=== PATIENT | female | born 1945 | race Caucasian/White ===

== ENCOUNTER 2023-10-22 08:19 | Emergency (ER) | payer OTHER ==
--- OUTSIDE RECORDS SUMMARY | 2023-10-22 08:22 | XMS REPORT | Continuity of Care Document ---
:1945 Author Organization [facility] t Address [address] [place] [address] [place] [id number] Care Team Providers Name Role Phone Asked, No Pcp Primary Care Physician Unavailable GC_SWHATBIC_Black_D Attending Clinician Unavailable GC_SWHAOMC_Black_D Attending Clinician Unavailable BRIDGETT WEINSTEIN Attending Clinician Unavailable Marcin Oleary Attending Clinician GC_SWHATBIC_Black_D Admitting Clinician Unavailable GC_SWHAOMC_Black_D Admitting Clinician Unavailable Payers Payer Name Policy Type Policy Number Effective Date Expiration Date [facility] [id number] (MEDICARE REPLACEMENT/ADVANTAGE - PPO) Problems Condition Condition Condition Status Onset Resolution Last Treating Co mments Source Name Details Category Date Date Treatment Clinician Date Visual Visual Problem Active 2019-07-29 Jose harley disturbanc disturbanc 01:10:21 l Irina (disorder) (disorder) Active Problem 07/29/2019 [facility] Headache Headache Problem Active 2019-07-29 Memoria (finding) (finding) 01:10:21 l Active Cesar Problem 07/29/2019 [facility] Allergies, Adverse Reactions, Alerts Allergy Allergy Status Severity Reaction(s) Onset Inactive Treating Comm ents Source Name Type Date Date Clinician tetracyc tetracyc Active Memori a line line vargas Guerrero levothyr levothyr Active Memori a oxine oxine vargas Guerrero Social History Social Habit Start Date Stop Date Quantity Comments Source [facility] Sex [facility] At [birth year] [facility] 00:00:00 00:00:00 Smoking Status Start Date Stop Date Source Tobacco smoking consumption Meth [facility] unknown Social History 2019-07-26 16:22:21 2019-07-26 16:22:21 [facility] Medications Ordered Filled Start Stop Current Ordering Indication Dosage Frequency Signature Comments Components Source Medication Medication Date Date Medication? Clinician (SIG) Name Name Aspirin 81 2019- Yes 81 mg = 1 Me moria MG Enteric 05 tab, PO, l Coated 16:39: Daily, # [place] Tablet 00 90 tab, 3 Refill(s), other magnesium 2019- Yes 250 mg = 1 Me moria oxide 250 08 tab, PO, l mg oral 15:24: Daily, 0 Karri n tablet 00 Refill(s) omeprazole 2019- Yes 20 mg = 1 Me moria 20 mg oral 08 cap, PO, l delayed 14:58: Daily, 0 Karri n release 00 Refill(s) capsule Vital Signs Vital Name Observation Time Observation Value Comments Source Systolic (mm Hg) 2019-07-26 16:18:00 Jose rial [place] Diastolic (mm Hg) 2019-07-26 16:18:00 Mem orial [place] Heart Rate 2019-07-26 16:18:00 [facility] [place] Respitory Rate 2019-07-26 16:18:00 Memori al Cesar Height 2019-07-26 16:18:00 160.02 cm [facility] [place] Weight 2019-07-26 16:18:00 [facility] BMI Calculated 2019-07-26 16:18:00 Memori al [place] Weight 2019-06-28 14:54:00 [facility] BMI Calculated 2019-06-28 14:54:00 Memori al [facility] Height 2019-06-28 14:54:00 157.48 cm [facility] Heart Rate 2019-06-28 14:54:00 [facility] Respitory Rate 2019-06-28 14:54:00 Memori al [place] Systolic (mm Hg) 2019-06-28 14:54:00 Jose rial [place] Diastolic (mm Hg) 2019-06-28 14:54:00 Mem orial Cesar Procedures This patient has no known procedures. Plan of Care Planned Activity Planned Date Details Comments Source Future Scheduled 2023-09-17 COVID-19 VACCINE [facility] Test 22:34:17 (#1) [code = COVID-19 VACCINE (#1)] Future Scheduled 2023-09-17 [facility] 22:34:17 screening (procedure) [code = 972264694] Future Scheduled 2023-09-17 SHINGLES VACCINES Method [facility] Test 22:34:17 (2 of 3) [code = SHINGLES VACCINES (2 of 3)] Future Scheduled 2023-09-17 INFLUENZA VACCINE Method [facility] Test 22:34:17 (#1) [code = INFLUENZA VACCINE (#1)] Encounters Start End Encounter Admission Attending Care Care Encounter Source Date/Time Date/Time Type Type Clinicians Facility Department ID 2023-09-20 2023-09-20 Outpatient GC_SWHATBIC PRIV PRIV [id number] [facility] 00:00:00 00:00:00 _Black_D [id number] Medic al 2023-09-15 2023-09-15 Outpatient GC_SWHATB[facility] PRIV PRIV [id number] [facility] 00:00:00 00:00:00 _Black_D [id number] Medic al 2023-09-15 2023-09-15 Outpatient GC_SWHATBIC PRIV PRIV [id number] [facility] 00:00:00 00:00:00 _Black_D [id number] Medic al 2023-05-27 2023-05-27 Outpatient GC_SWHAOMC_ PRIV PRIV [id number] [facility] 00:00:00 00:00:00 Black_D [id number] Medica l 2023-05-27 2023-05-27 Outpatient GC_SWHAOMC_ PRIV PRIV [id number] [facility] 00:00:00 00:00:00 Black_D [id number] Medica l 2023-05-27 2023-05-27 Outpatient GC_SWHAOMC_ PRIV PRIV [id number] [facility] 00:00:00 00:00:00 Black_D [id number] Medica l 2023-05-27 2023-05-27 Outpatient GC_SWHAOMC_ PRIV PRIV [id number] [facility] 00:00:00 00:00:00 Black_D [id number] Medica l 2022-09-09 2022-09-09 Outpatient GC_SWHATBIC PRIV PRIV [id number] [facility] 00:00:00 00:00:00 _Black_D [id number] Medic al 2022-09-07 2022-09-07 Outpatient GC_SWHATBIC PRIV PRIV [id number] [facility] 00:00:00 00:00:00 _Black_D [id number] Medic al 2022-08-25 2022-08-25 Outpatient GC_SWHATBIC PRIV PRIV [id number] [facility] 00:00:00 00:00:00 _Black_D [id number] Medic al 2022-08-24 2022-08-24 Outpatient GC_SWHATBIC PRIV PRIV [id number] [facility] 00:00:00 00:00:00 _Black_D [id number] Medic al 2021-05-20 2021-05-20 Outpatient JS, [facility] [id number] [place] 00:00:00 00:00:00 BRIDGETT [address] 2021-05-20 2021-05-20 Outpatient JS, [facility] [id number] [place] 00:00:00 00:00:00 BRIDGETT [address] 2021-05-20 2021-05-20 Outpatient JS, [facility] [id number] [place] 00:00:00 00:00:00 BRIDGETT [address] 2019-07-26 2019-07-27 Outpatient nullFlavo MNA [id number] [facility] 16:15:00 04:59:59 r Neurology 01 l Concetta Guerrero 2019-07-26 2019-07-26 Outpatient Mamta MHMISCHER MHMISCHER [id number] 11:15:00 23:59:59 Marcin 01 Joesph 2019-07-26 2019-07-26 Outpatient MHIE MHIE [id number] [facility] 11:15:00 11:15:00 Ken Guerrero 2019-06-28 2019-06-29 Outpatient nullFlavo MNA [id number] [facility] 15:15:00 04:59:59 r Neurology 00 l Concetta Guerrero 2019-06-28 2019-06-28 Outpatient MARY OlearyMISCHER MHMISCHER [id number] 10:15:00 23:59:59 Marcin 00 Joesph 2019-06-28 2019-06-28 Outpatient MHIE MHIE [id number] [facility] 10:15:00 10:15:00 00 vargas Guerrero Results This patient has no known results.
--- NOTE | 2023-10-22 09:37 | ER ---
Nurse's Notes [facility] Name: Tanika Crenshaw Age: 78 yrs Sex: Female : 1945 Arrival Date: 10/22/2023 Time: 08:19 Bed 14 Private MD: Michael Iniguez V Diagnosis: Central perforation of tympanic membrane, left ear-EXTERNAL AUDITORY AUDITORY CANAL TRAUMA Presentation: 10/22 08:41 Chief complaint: Poked ear with q-tip last night, saw a scant amount of blood hb afterwards and again this morning, c/left ear pain 01/28. Coronavirus screen: At this time, the client does not indicate any symptoms associated with coronavirus-19. Ebola Screen: No symptoms or risks identified at this time. Initial Sepsis Screen: Does the patient meet any 2 criteria? No. Patient's initial sepsis screen is negative. Does the patient have a suspected source of infection? No. Patient's initial sepsis screen is negative. Risk Assessment: Do you want to hurt yourself or someone else? Patient reports no desire to harm self or others. Onset of symptoms was October 21, 2023. 08:41 Method Of Arrival: Ambulatory hb 08:41 Acuity: MATY 4 hb Historical: - Allergies: 08:44 TETRACYCLINES; hb - Home Meds: 08:44 Prilosec 20 mg Oral cpDR 1 cap once daily [Active]; [place] Thyroid Oral [Active]; hb - PMHx: 08:44 GERD; hb - PSHx: 08:44 None; hb - Immunization history:: Adult Immunizations up to date. - Social history:: Smoking status: Patient denies any tobacco usage or history of. Screenin:45 [facility] ED Fall Risk Assessment (Adult) History of falling in the last 3 months, kc6 including since admission No falls in past 3 months (0 pts) Confusion or Disorientation No (0 pts) Intoxicated or Sedated No (0 pts) Impaired Gait No (0 pts) Mobility Assist Device Used No (0 pt) Altered Elimination No (0 pt) Score/Fall Risk Level 0 - 2 = Low Risk. Abuse screen: Denies threats or abuse. Denies injuries from another. Nutritional screening: No deficits noted. Tuberculosis screening: No symptoms or risk factors identified. Assessment: 08:45 General: Appears in no apparent distress. comfortable, Behavior is calm, cooperative, kc6 appropriate for age. Pain: Complains of pain in left ear. Neuro: Level of Consciousness is awake, alert, obeys commands, Oriented to person, place, time, situation, Appropriate for age. Cardiovascular: Capillary refill < 3 seconds. Respiratory: Airway is patent Trachea midline Respiratory effort is even, unlabored, Respiratory pattern is regular, symmetrical. GI: No signs and/or symptoms were reported involving the gastrointestinal system. : No signs and/or symptoms were reported regarding the genitourinary system. EENT: Ear canal clear on left ear. Derm: No signs and/or symptoms reported regarding the dermatologic system. Skin is intact, is healthy with good turgor, Skin is pink, warm \T\ dry. Musculoskeletal: No signs and/or symptoms reported regarding the musculoskeletal system. Circulation, motion, and sensation intact. Capillary refill < 3 seconds, Range of motion: intact in all extremities. 09:45 Reassessment: Patient appears in no apparent distress at this time. No changes from kc6 previously documented assessment. Patient and/or family updated on plan of care and expected duration. Pain level reassessed. Patient is alert, oriented x 3, equal unlabored respirations, skin warm/dry/pink. Vital Signs: 08:41 BP 116 / 52; Pulse 80; Resp 16; Temp 98.1; Pulse Ox 100% on R/A; Weight 55.79 kg; hb Height 5 ft. 3 in. ; Pain 3/10; 10:00 BP 130 / 57; Pulse 64; Resp 16 S; Pulse Ox 100% on R/A; kc6 08:41 Body Mass Index 21.79 (55.79 kg, 160.02 cm) hb 08:41 Pain Scale: Adult hb ED Course: 08:21 Patient arrived in ED. mr 08:21 Michael Iniguez MD is Private Physician. mr 08:24 Umair Chong MD is Attending Physician. brock 08:44 Triage completed. hb 08:45 Arm band placed on. hb 08:45 Patient has correct armband on for positive identification. Bed in low position. Call kc6 light in reach. Side rails up X 1. Adult w/ patient. Client placed on continuous cardiac and pulse oximetry monitoring. NIBP monitoring applied. 08:45 Patient maintains SpO2 saturation greater than 95% on room air. kc6 09:22 Shawnee Correia, RN is Primary Nurse. kc6 09:30 Michael Iniguez MD is Referral Physician. [facility] 09:30 Mindy Whitman MD is Referral Physician. [facility] 10:01 No provider procedures requiring assistance completed. Patient did not have IV access kc6 during this emergency room visit. Administered Medications: 09:34 Drug: Ibuprofen PO 400 mg PO once Route: PO; kc6 10:01 Follow up: Response: No adverse reaction kc6 09:54 Drug: ofloxacin Drops 0.3 % 5 drops Otic once Route: Otic; Site: left ear; kc6 10:01 Follow up: Response: No adverse reaction kc6 Medication: 10:01 VIS not applicable for this client. kc6 Outcome: 09:36 Discharge ordered by . [facility] 10:01 Discharged to home ambulatory, with significant other, kc6 10:01 Condition: good 10:01 Discharge instructions given to patient, significant other, Instructed on discharge instructions, follow up and referral plans. medication usage, Demonstrated understanding of instructions, follow-up care, medications, Prescriptions given X 3, 10:01 Patient left the ED. kc6 Signatures: Umair Chong MD MD cha Rivera, Mary, Reg Reg mr Connie Morgan, RN JODIE Shawnee Correia, JODIE RN kc6
--- NOTE | 2023-10-22 09:37 | EDPHYS ---
Physician Documentation [facility] Name: Tanika Crenshaw Age: 78 yrs Sex: Female : 1945 Arrival Date: 10/22/2023 Time: 08:19 Bed 14 Private MD: Michael Iniguez V ED Physician Umair Chong HPI: 10/22 09:26 This 78 yrs old Female presents to ER via Ambulatory with complaints of Ear Injury. brock 09:26 The patient presents with pain, tenderness. The complaints affect the left ear. Onset: brock The symptoms/episode began/occurred 1 day(s) ago. Modifying factors: The symptoms are alleviated by nothing, covering ear, the symptoms are aggravated by nothing. Associated signs and symptoms: The patient has no apparent associated signs or symptoms. The patient has not experienced similar symptoms in the past. Historical: - Allergies: 08:44 TETRACYCLINES; hb - Home Meds: 08:44 Prilosec 20 mg Oral cpDR 1 cap once daily [Active]; [place] Thyroid Oral [Active]; hb - PMHx: 08:44 GERD; hb - PSHx: 08:44 None; hb - Immunization history:: Adult Immunizations up to date. - Social history:: Smoking status: Patient denies any tobacco usage or history of. ROS: 09:27 Constitutional: Negative for fever, chills, and weight loss, Eyes: Negative for injury, brock pain, redness, and discharge, Neck: Negative for injury, pain, and swelling, Cardiovascular: Negative for chest pain, palpitations, and edema, Respiratory: Negative for shortness of breath, cough, wheezing, and pleuritic chest pain, Abdomen/GI: Negative for abdominal pain, nausea, vomiting, diarrhea, and constipation, Back: Negative for injury and pain, : Negative for injury, bleeding, discharge, and swelling, MS/Extremity: Negative for injury and deformity, Skin: Negative for injury, rash, and discoloration, Neuro: Negative for headache, weakness, numbness, tingling, and seizure, Psych: Negative for depression, anxiety, suicide ideation, homicidal ideation, and hallucinations, Allergy/Immunology: Negative for hives, rash, and allergies, Endocrine: Negative for neck swelling, polydipsia, polyuria, polyphagia, and marked weight changes, Hematologic/Lymphatic: Negative for swollen nodes, abnormal bleeding, and unusual bruising, 09:27 ENT: Positive for drainage from ear(s), ear pain, Exam: 09:27 Constitutional: This is a well developed, well nourished patient who is awake, alert, brock and in no acute distress. Head/Face: Normocephalic, atraumatic. Eyes: Pupils equal round and reactive to light, extra-ocular motions intact. Lids and lashes normal. Conjunctiva and sclera are non-icteric and not injected. Cornea within normal limits. Periorbital areas with no swelling, redness, or edema. Neck: Trachea midline, no thyromegaly or masses palpated, and no cervical lymphadenopathy. Supple, full range of motion without nuchal rigidity, or vertebral point tenderness. No Meningismus. Chest/axilla: Normal chest wall appearance and motion. Nontender with no deformity. No lesions are appreciated. Cardiovascular: Regular rate and rhythm with a normal S1 and S2. No gallops, murmurs, or rubs. Normal PMI, no JVD. No pulse deficits. Respiratory: Lungs have equal breath sounds bilaterally, clear to auscultation and percussion. No rales, rhonchi or wheezes noted. No increased work of breathing, no retractions or nasal flaring. Abdomen/GI: Soft, non-tender, with normal bowel sounds. No distension or tympany. No guarding or rebound. No evidence of tenderness throughout. Back: No spinal tenderness. No costovertebral tenderness. Full range of motion. Skin: Warm, dry with normal turgor. Normal color with no rashes, no lesions, and no evidence of cellulitis. MS/ Extremity: Pulses equal, no cyanosis. Neurovascular intact. Full, normal range of motion. Neuro: Awake and alert, GCS 15, oriented to person, place, time, and situation. Cranial nerves II-XII grossly intact. Motor strength 5/5 in all extremities. Sensory grossly intact. Cerebellar exam normal. Normal gait. Psych: Awake, alert, with orientation to person, place and time. Behavior, mood, and affect are within normal limits. 09:27 ENT: Ear canal(s): bleeding, clotted blood, in the left canal, TM's: rupture, on the left, Vital Signs: 08:41 BP 116 / 52; Pulse 80; Resp 16; Temp 98.1; Pulse Ox 100% on R/A; Weight 55.79 kg; hb Height 5 ft. 3 in. ; Pain 3/10; 10:00 BP 130 / 57; Pulse 64; Resp 16 S; Pulse Ox 100% on R/A; kc6 08:41 Body Mass Index 21.79 (55.79 kg, 160.02 cm) hb 08:41 Pain Scale: Adult hb MDM: 08:24 Patient medically screened. brock 09:27 Differential diagnosis: otitis media, otitis externa, ruptured TM, foreign body. Data brock reviewed: vital signs, nurses notes. Consideration of Admission/Observation Escalation of care including admission/observation considered. I considered the following discharge prescriptions or medication management in the emergency department Medications were administered in the Emergency Department. See MAR. Test considered but Not performed: Labs: NO LABS. Historians other than the Patient: Spouse/Significant Other: . Care significantly affected by the following chronic conditions: GERD. Counseling: I had a detailed discussion with the patient and/or guardian regarding the historical points, exam findings, and any diagnostic results supporting the discharge/admit diagnosis, the need for outpatient follow up, for definitive care, an ENT specialist. ED course: AMANUEL TARIQ. Administered Medications: 09:34 Drug: Ibuprofen PO 400 mg PO once Route: PO; kc6 10:01 Follow up: Response: No adverse reaction kc6 09:54 Drug: ofloxacin Drops 0.3 % 5 drops Otic once Route: Otic; Site: left ear; kc6 10:01 Follow up: Response: No adverse reaction kc6 Disposition Summary: 10/22/23 09:36 Discharge Ordered Notes: Location: Home brock Problem: new brock Symptoms: have improved brock Condition: Stable brock Diagnosis - Central perforation of tympanic membrane, left ear - EXTERNAL AUDITORY AUDITORY brcok CANAL TRAUMA Followup: brock - With: Michael Iniguez MD - When: 2 - 3 days - Reason: Recheck today's complaints, Continuance of care, Re-evaluation by your physician Followup: brock - With: Mindy Tariq MD - When: 1 - 2 days - Reason: Recheck today's complaints, Re-evaluation by your physician Discharge Instructions: - Discharge Summary Sheet brock - Eardrum Rupture, Adult brock - Ear Drops, Adult brock - Ear Drops, Adult, [id number] brock - Eardrum Rupture, [id number]-rt-[id number] [facility] Forms: - Medication Reconciliation Form [facility] - Thank You Letter brock - Antibiotic Education brock - Prescription Opioid Use brock - Patient Portal Instructions [facility] - Leadership Thank You Letter brock Prescriptions: - ofloxacin 0.3 % Otic drops - instill 5 drop OTIC route 2 times per day for 10 days; 10 milliliter; Refills: brock 0, Product Selection Permitted - acetaminophen-codeine 300-30 mg Oral tablet - take 1 tablet ORAL route every 4 to 6 hours; 20 tablet; Refills: 0, Product [facility] Selection Permitted - Motrin IB 200 mg Oral tablet - take 2 tablet ORAL route every 6 hours As needed as needed with food; 30 brock tablet; Refills: 0, Product Selection Permitted Signatures: Umair Chong MD MD cha Baxter, Heather, RN RN Shawnee Correia RN RN kc6
[2023-10-22] MEDS ORDERED: IBUPROFEN 400 MG TAB ONE (09:43)
[2023-10-22] MEDS ORDERED: OFLOXACIN OPH 0.3%-5 ML BTL OTIC ONE (09:45)
[2023-10-22 10:17] VITALS: TEMP 98.1; O2SAT 100
[2023-10-22 10:20] VITALS: BP 130/57
== END 2023-10-22 10:01 | disposition home or self-care (01) ==
LOC: ER 08:19
DX: H72.02 Central perforation of tympanic membrane, left ear (principal); S09.91XA Unspecified injury of ear, initial encounter; Z88.1 Allergy status to other antibiotic agents
CPT/HCPCS: 99284